=== PATIENT | male | born 1980 | race African-American/Black ===

== ENCOUNTER 2020-10-12 20:47 | Emergency (ER) | payer OTHER ==
--- NOTE | 2020-10-12 21:36 | XR ---
EXAMINATION TYPE: XR knee complete RT DATE OF EXAM: 10/12/2020 COMPARISON: NONE HISTORY: Knee pain TECHNIQUE: 3 views FINDINGS: I see no fracture nor dislocation. Joint spaces are fairly normal. There is knee joint effu yamileth. IMPRESSION: Knee joint effusion. No fracture seen.
[2020-10-12] MEDS ORDERED: KETOROLAC 15 MG/ML 1 ML VIAL IM STA (22:08)
--- NOTE | 2020-10-12 22:26 | ED ---
General Adult HPI - General Chief complaint: Extremity Injury, Lower Stated complaint: Right knee pain Time Seen by Provider: 10/12/20 21:01 Source: patient, RN notes reviewed Mode of arrival: wheelchair Limitations: no limitations - History of Present Illness Initial comments: 40-year-old male presents to the emergency room for a chief complaint of right knee pain. Patient reports he has had pain in the right knee for about 1 month now. States it has been swollen for about a month. Patient states it is painful to walk on. Patient denies fevers or chills. Patient denies any injury. Patient denies any pain in his calf or posterior knee.Patient has no other complaints at this time including shortness of breath, chest pain, abdominal pain, nausea or vomiting, headache, or visual changes. - Related Data Allergies Allergy/AdvReac Type Severity Reaction Status Date / Time Penicillins Allergy Rash/Hives Verified 10/12/20 21:00 Review of Systems ROS Statement: Those systems with pertinent positive or pertinent negative responses have been documented in the HPI. ROS Other: All systems not noted in ROS Statement are negative. Past Medical History Past Medical History: No Reported History History of Any Multi-Drug Resistant Organisms: None Reported Past Surgical History: No Surgical Hx Reported Past Psychological History: No Psychological Hx Reported Smoking Status: Never smoker Past Alcohol Use History: Daily Past Drug Use History: None Reported General Exam Limitations: no limitations General appearance: alert, in no apparent distress Head exam: Present: atraumatic, normocephalic, normal inspection Eye exam: Present: normal appearance ENT exam: Present: normal exam, mucous membranes moist Neck exam: Present: normal inspection. Absent: tenderness, meningismus, lymphadenopathy Respiratory exam: Present: normal lung sounds bilaterally. Absent: respiratory distress, wheezes, rales, rhonchi, stridor Cardiovascular Exam: Present: regular rate, normal rhythm, normal heart sounds. Absent: systolic murmur, diastolic murmur, rubs, gallop, clicks GI/Abdominal exam: Present: soft, normal bowel sounds. Absent: distended, tenderness, guarding, rebound, rigid Extremities exam: Present: full ROM (Full range of motion of the right knee including full flexion and extension.), tenderness (Minimal tenderness to the anterior aspect of the right knee.), normal capillary refill (Capillary refill less than 2 seconds, to be pulse 2+ in the right lower extremity.), joint swelling (Minimal edema of the right knee without erythema or increased warmth.), other (Sensation intact right lower extremity). Absent: calf tenderness (Negative Homans sign, no tenderness.) Course Vital Signs 10/12/20 10/12/20 20:58 22:53 Temperature 98.3 F Pulse Rate 72 72 Respiratory 20 20 Rate Blood Pressure 116/60 O2 Sat by Pulse 96 96 Oximetry Medical Decision Making - Medical Decision Making Vitals are stable. Patient is afebrile. HPI and physical exam is documented. No evidence of septic joint as patient has had symptoms for over one month, has full range of motion, and is afebrile without erythema or increased warmth of the knee. X-ray of the right knee does show a joint effusion. Patient was wrapped with an Fernando wrap and referred to orthopedics. However upon discharge patient became increasingly drowsy. He did admit to taking sleeping pills today before arrival. Patient was monitored for a few hours in the emergency room. At this point was notified by the nursing staff patient was awake and walking around the exam room requesting discharge. Patient alert and oriented, normal gait. Will be discharged home. I discussed this case with attending Dr. Guzman who agrees with this assessment and treatment plan. - Lab Data Lab Results 10/12/20 Range/Units 21:00 Urine Opiates Screen Not Detected (NotDetected) Ur Oxycodone Screen Not Detected (NotDetected) Urine Methadone Screen Not Detected (NotDetected) Ur Propoxyphene Screen Not Detected (NotDetected) Ur Barbiturates Screen Not Detected (NotDetected) U Tricyclic Antidepress Not Detected (NotDetected) Ur Phencyclidine Scrn Not Detected (NotDetected) Ur Amphetamines Screen Not Detected (NotDetected) U Methamphetamines Scrn Not Detected (NotDetected) U Benzodiazepines Scrn Detected H (NotDetected) Urine Cocaine Screen Not Detected (NotDetected) U Marijuana (THC) Screen Not Detected (NotDetected) Disposition Clinical Impression: Knee pain, right Disposition: HOME SELF-CARE Condition: Good Instructions (If sedation given, give patient instructions): Knee Pain (ED) Additional Instructions: Take Motrin and Tylenol for pain. Rest ice and elevate the right knee. Please follow up with orthopedics in one to 2 days. Return to the emergency room for any worsening symptoms. Is patient prescribed a controlled substance at d/c from ED?: No Referrals: Bassam Bustamante DO [Doctor of Osteopathic Medicine] - 1-2 days Time of Disposition: 22:25
[2020-10-12] MEDS ORDERED: NALOXONE 0.4 MG/ML 1 ML VIAL IM STA (22:42)
[2020-10-12 22:58] LABS: Amphetamine Screen,Urine Not Detected (NotDetected); Barbiturate Screen,Urine Not Detected (NotDetected); Benzodiazepines Screen,Urine Detected (NotDetected); Cocaine Screen,Urine Not Detected (NotDetected); Methadone Screen, Urine Not Detected (NotDetected); Opiate Screen,Urine Not Detected (NotDetected); Oxycodone Screen, Urine Not Detected (NotDetected); Phencyclidine Screen,Urine Not Detected (NotDetected); Tricyclic Antidepressant,Urine Not Detected (NotDetected); Urn Cannabinoid Scrn Not Detected (NotDetected)
[2020-10-13 00:31] VITALS: BP 118/82; PULSE 78; RESP 16; TEMP 98.4
== END 2020-10-13 00:28 | disposition home or self-care (01) ==
LOC: EC 20:47
DX: M25.461 Effusion, right knee (principal); R42 Dizziness and giddiness; Z88.0 Allergy status to penicillin
CPT/HCPCS: 80306; 99283

== ENCOUNTER 2020-10-13 22:16 | Emergency (ER) | payer OTHER ==
[2020-10-13 22:24] VITALS: RESP 20; TEMP 98.7
--- NOTE | 2020-10-13 22:46 | ED ---
Recheck HPI - General Chief Complaint: Recheck/Abnormal Lab/Rx Stated Complaint: Revisit,Right leg Time Seen by Provider: 10/13/20 22:33 Source: patient, RN notes reviewed, old records reviewed Mode of arrival: ambulatory Limitations: no limitations - History of Present Illness Initial Comments: This is a 40-year-old male to the ER for evaluation patient presents today for evaluation regards to right knee pain. Patient was in the ER for this in the past. Had x-rays which were normal. Patient is homeless is difficult for him to stay off his knees but he has full range of motion no pain with range of motion no erythema or redness and denies trauma. MD Complaint: medication refill request, other (Pain control) -: month(s) Returns Today for: persistent/worsening pain related to initial visit Symptoms Since Prior Visit: worsening pain Associated Symptoms: none Treatments Prior to Arrival: Given Pain Meds on - Related Data Home Medications Medication Instructions Recorded Confirmed No Known Home Medications 10/13/20 10/13/20 Allergies Allergy/AdvReac Type Severity Reaction Status Date / Time Penicillins Allergy Unknown Verified 10/13/20 23:26 Childhood Review of Systems ROS Statement: Those systems with pertinent positive or pertinent negative responses have been documented in the HPI. ROS Other: All systems not noted in ROS Statement are negative. Past Medical History Past Medical History: No Reported History History of Any Multi-Drug Resistant Organisms: None Reported Past Surgical History: No Surgical Hx Reported Past Psychological History: No Psychological Hx Reported Smoking Status: Never smoker Past Alcohol Use History: Daily Past Drug Use History: None Reported General Exam - General Exam Comments Initial Comments: Patient does have knee effusion on the right, likely related to arthritis Limitations: no limitations General appearance: alert, in no apparent distress Head exam: Present: atraumatic, normocephalic, normal inspection Eye exam: Present: normal appearance, PERRL, EOMI. Absent: scleral icterus, conjunctival injection, periorbital swelling ENT exam: Present: normal exam, mucous membranes moist Neck exam: Present: normal inspection. Absent: tenderness, meningismus, lymphadenopathy Respiratory exam: Present: normal lung sounds bilaterally. Absent: respiratory distress, wheezes, rales, rhonchi, stridor Cardiovascular Exam: Present: regular rate, normal rhythm, normal heart sounds. Absent: systolic murmur, diastolic murmur, rubs, gallop, clicks GI/Abdominal exam: Present: soft, normal bowel sounds. Absent: distended, tenderness, guarding, rebound, rigid Extremities exam: Present: normal inspection, full ROM, normal capillary refill. Absent: tenderness, pedal edema, joint swelling, calf tenderness Back exam: Present: normal inspection Neurological exam: Present: alert, oriented X3, CN II-XII intact Psychiatric exam: Present: normal affect, normal mood Skin exam: Present: warm, dry, intact, normal color. Absent: rash Course Vital Signs 10/13/20 22:18 Temperature 98.7 F Pulse Rate 74 Respiratory 20 Rate Blood Pressure 128/82 O2 Sat by Pulse 98 Oximetry - Reevaluation(s) Reevaluation #1: 10/14/20 00:14 Medical records reviewed Reevaluation #2: 10/14/20 00:14 Patient's pain is improved here in the ER Medical Decision Making - Medical Decision Making 40 male DF with right knee effusion likely inflammatory. No signs or symptoms of septic arthritis patient can be discharged home Disposition Clinical Impression: Knee pain, right, Effusion, right knee Disposition: HOME SELF-CARE Condition: Good Instructions (If sedation given, give patient instructions): Swollen Knee Joint (ED) Is patient prescribed a controlled substance at d/c from ED?: No Referrals: None,Stated [Primary Care Provider] - 1-2 days
[2020-10-13] MEDS ORDERED: Acetaminophen-Codeine 300-30mg TAB PO STA (23:33)
[2020-10-13] MEDS ORDERED: IBUPROFEN 600 MG STARTER PACK 4 TAB BTL PO STA (23:33)
[2020-10-13] MEDS ORDERED: dexAMETHasone 4 MG TAB PO STA (23:33)
[2020-10-13] MEDS ORDERED: ACET/COD 300 MG/30 MG STARTER PACK 6 TAB BTL PO STA (23:33)
[2020-10-13] MEDS ORDERED: KETOROLAC 15 MG/ML 1 ML VIAL IM STA (23:33)
[2020-10-14 00:34] VITALS: BP 118/65; PULSE 71
== END 2020-10-14 04:41 | disposition home or self-care (01) ==
LOC: EC 22:16
DX: M25.461 Effusion, right knee (principal); Z88.0 Allergy status to penicillin; Z59.0 Homelessness
CPT/HCPCS: 99284; 96372; J8540; J1885

== ENCOUNTER 2020-10-18 15:26 | Emergency (ER) | payer OTHER ==
[2020-10-18 15:37] VITALS: BP 127/81; PULSE 89; RESP 18; TEMP 98.5
[2020-10-18] MEDS ORDERED: KETOROLAC 15 MG/ML 1 ML VIAL IM STA (16:33)
--- NOTE | 2020-10-18 16:38 | ED ---
General Adult HPI - General Chief complaint: Extremity Injury, Lower Stated complaint: Leg Pain Time Seen by Provider: 10/18/20 15:42 Source: patient, RN notes reviewed, old records reviewed Mode of arrival: ambulatory Limitations: no limitations - History of Present Illness Initial comments: 40-year-old male patient to ED for evaluation of right knee pain. Patient reports that his right knee hurts when he walks, however he was still able to walk and bear weight. He reports that he is always on his feet and that is causing his knee to hurt on the anterior aspect of it. He denies any recent falls or trauma. He denies any fevers or chills or any other acute complaints. Systemic: Pt denies fatigue, fever/chills, rash. Pt denies weakness, night sw eats, weight loss. Neuro: Pt denies headache, visual disturbances, syncope or pre-syncope. HEENT: Pt denies ocular discharge or irritation, otalgia, rhinorrhea, pharyngitis or notable lymphadenopathy. Cardiopulmonary: Pt denies chest pain, SOB, heart palpitations, dyspnea on exertion. Abdominal/GI: Pt denies abdominal pain, n/v/d. : Pt denies dysuria, burning w/ urination, frequency/urgency. Denies new onset urinary or bowel incontinence. Neuro: Pt denies new onset weakness, paresthesias. - Related Data Home Medications Medication Instructions Recorded Confirmed No Known Home Medications 10/13/20 10/13/20 Allergies Allergy/AdvReac Type Severity Reaction Status Date / Time Penicillins Allergy Unknown Verified 10/18/20 15:37 Childhood Review of Systems ROS Statement: Those systems with pertinent positive or pertinent negative responses have been documented in the HPI. ROS Other: All systems not noted in ROS Statement are negative. Past Medical History Past Medical History: No Reported History History of Any Multi-Drug Resistant Organisms: None Reported Past Surgical History: No Surgical Hx Reported Past Psychological History: No Psychological Hx Reported Smoking Status: Never smoker Past Alcohol Use History: Daily, Heavy Past Drug Use History: None Reported General Exam - General Exam Comments Initial Comments: Constitutional: NAD, AOX3, Pt has pleasant affect. HEENT: NC/AT, trachea midline, neck supple, no lymphadenopathy. Posterior pharynx non erythematous, without exudates. External ears appear normal, without discharge. Mucous membranes moist. Eyes PERRLA, EOM intact. There is no scleral icterus. No pallor noted. Cardiopulmonary: RRR, no murmurs, rubs or gallops, no JVD noted. Lungs CTAB in anterior and posterior lagos. No peripheral edema. Abdominal exam: Abdomen soft and non-distended. Abdomen non-tender to palpation in all 4 quadrants. Bowel sounds active in LLQ. No hepatosplenomegaly. No ecchymosis Neuro: CN II-XII grossly intact. No nuchal rigidity. No raccon eyes, no martinez sign, no hemotympanum. No cervical spinal tenderness. MSK: Right knee is nontender to palpate patient with no skin changes. Full active range of motion. No warmth. No fluctuance. Ambulatory in room. No posterior calf tenderness bilaterally, homans sign negative bilaterally. Posterior tibialis and radial pulse +2 bilaterally. Sensation intact in upper and lower extremities. Full active ROM in upper and lower extremities, 5/5 stregnth. Limitations: no limitations Course Vital Signs 10/18/20 15:30 Temperature 98.5 F Pulse Rate 89 Respiratory 18 Rate Blood Pressure 127/81 O2 Sat by Pulse 98 Oximetry Medical Decision Making - Medical Decision Making 40-year-old male patient to ED with chief complaint of right knee pain. Patient did not have recent x-rays. Bowel sounds are stable, afebrile. Visible exam negative for acute pathology. Ambulatory in room. Patient administered a dose of Toradol and ne wrap emergency department. Advised to use crutches as needed and follow up with primary care provider on outpatient basis. Return if any worsening symptoms. Case discussed with Dr. Hurtado. Disposition Clinical Impression: Knee pain Disposition: HOME SELF-CARE Condition: Stable Instructions (If sedation given, give patient instructions): Knee Pain (ED) Additional Instructions: Follow up with PCP tomorrow. Use crutches as needed. Return to ED with any worsening symptoms. Is patient prescribed a controlled substance at d/c from ED?: No Referrals: None,Stated [Primary Care Provider] - 1-2 days Fernanda Page MD [REFERRING] - 1-2 days Errol Traore [STAFF PHYSICIAN] - 1-2 days
== END 2020-10-18 17:11 | disposition home or self-care (01) ==
LOC: EC 15:26
DX: M25.561 Pain in right knee (principal); Z88.0 Allergy status to penicillin
CPT/HCPCS: 99283; J1885

== ENCOUNTER 2020-10-19 19:25 | Emergency (ER) | payer OTHER ==
[2020-10-19 19:30] VITALS: BP 146/88; PULSE 77; RESP 18; TEMP 97.9
--- NOTE | 2020-10-19 19:54 | ED ---
General Adult HPI - General Chief complaint: Medical Clearance Stated complaint: [facility] clearance Time Seen by Provider: 10/19/20 19:33 Source: patient, police, RN notes reviewed, old records reviewed Mode of arrival: ambulatory Limitations: no limitations - History of Present Illness Initial comments: 40-year-old male patient ED for shelter clearance. Patient blew a 0.33 for the arresting officers so they brought him in for evaluation and clearance. Patient denies any falls or any trauma. Officers deny any fight or struggle. States that he feels fine, requesting discharge. Denies any acute complaints. Systemic: Pt denies fatigue, fever/chills, rash. Pt denies weakness, night sweats, weight loss. Neuro: Pt denies headache, visual disturbances, syncope or pre-syncope. HEENT: Pt denies ocular discharge or irritation, otalgia, rhinorrhea, pharyngitis or notable lymphadenopathy. Cardiopulmonary: Pt denies chest pain, SOB, heart palpitations, dyspnea on exertion. Abdominal/GI: Pt denies abdominal pain, n/v/d. : Pt denies dysuria, burning w/ urination, frequency/urgency. Denies new onset urinary or bowel incontinence. MSK: Pt denies myalgia, loss of strength or function in extremities. Neuro: Pt denies new onset weakness, paresthesias. - Related Data Home Medications Medication Instructions Recorded Confirmed No Known Home Medications 10/13/20 10/13/20 Allergies Allergy/AdvReac Type Severity Reaction Status Date / Time Penicillins Allergy Unknown Verified 10/18/20 15:37 Childhood Review of Systems ROS Statement: Those systems with pertinent positive or pertinent negative responses have been documented in the HPI. ROS Other: All systems not noted in ROS Statement are negative. Past Medical History Past Medical History: No Reported History History of Any Multi-Drug Resistant Organisms: None Reported Past Surgical History: No Surgical Hx Reported Past Psychological History: No Psychological Hx Reported Smoking Status: Never smoker Past Alcohol Use History: Daily, Heavy Past Drug Use History: None Reported General Exam - General Exam Comments Initial Comments: Constitutional: NAD, AOX3, Pt has pleasant affect. HEENT: NC/AT, trachea midline, neck supple, no lymphadenopathy. External ears appear normal, without discharge. Mucous membranes moist. Eyes PERRLA, EOM intact. There is no scleral icterus. No pallor noted. Cardiopulmonary: RRR, no murmurs, rubs or gallops, no JVD noted. Lungs CTAB in anterior and posterior lagos. No peripheral edema. Abdominal exam: Abdomen soft and non-distended. Abdomen non-tender to palpation in all 4 quadrants. Bowel sounds active in LLQ. No hepatosplenomegaly. No ecchymosis Neuro: CN II-XII grossly intact. No nuchal rigidity. No raccon eyes, no martinez sign. No cervical spinal tenderness. MSK: ROM of extremities intact, no signs of trauma noted. Limitations: no limitations Course Vital Signs 10/19/20 19:27 Temperature 97.9 F Pulse Rate 77 Respiratory 18 Rate Blood Pressure 146/88 O2 Sat by Pulse 98 Oximetry Medical Decision Making - Medical Decision Making 40-year-old male patient ED for shelter clearance. He is alert and oriented. Vital signs stable. Patient has no acute complaints. Patient will be cleared for shelter. Case discussed with Dr. Bass. Disposition Clinical Impression: Normal exam Narrative: [facility] clearance Disposition: HOME SELF-CARE Condition: Stable Additional Instructions: Follow up with PCP in 1-2 days. Return to ED with any worsening symptoms. Is patient prescribed a controlled substance at d/c from ED?: No Referrals: None,Stated [Primary Care Provider] - 1-2 days Fernanda Page MD [REFERRING] - 1-2 days Errol Traore [STAFF PHYSICIAN] - 1-2 days
== END 2020-10-19 20:05 | disposition home or self-care (01) ==
LOC: EC 19:25
DX: Z02.89 Encounter for other administrative examinations (principal); Z88.0 Allergy status to penicillin
CPT/HCPCS: 99282